=== PATIENT | female | born 2000 | race Caucasian/White ===

== ENCOUNTER 2019-05-21 18:21 | Emergency (ER) | payer OTHER, BC ==
[2019-05-21] MEDS ORDERED: Lidocaine 2% 10 ML Amp INJECT ONE (19:08)
--- NOTE | 2019-05-21 19:08 | EDM.PDOC ---
ED HPI GENERAL MEDICAL PROBLEM - General Stated Complaint: LACERATION TO R POINTING FINGER Time Seen by Provider: 05/21/19 18:35 Source of Information: Reports: Patient History Limitations: Reports: No Limitations - History of Present Illness INITIAL COMMENTS - FREE TEXT/NARRATIVE: laceration to right 2nd digit from cutting cheese at home. est 2 cm long in u shape at nail bed. Onset: Today Onset Time: 18:20 Location: Reports: Lower Extremity, Right ED ROS GENERAL - Review of Systems Review Of Systems: See Below Constitutional: Reports: No Symptoms HEENT: Reports: No Symptoms Respiratory: Reports: No Symptoms Cardiovascular: Reports: No Symptoms Endocrine: Reports: No Symptoms GI/Abdominal: Reports: No Symptoms : Reports: No Symptoms Musculoskeletal: Reports: No Symptoms Skin: Reports: Other (laceration right right 2nd digit 2 cm long at nail bed. ) Neurological: Reports: No Symptoms Psychiatric: Reports: No Symptoms Hematologic/Lymphatic: Reports: No Symptoms Immunologic: Reports: No Symptoms ED EXAM, GENERAL - Physical Exam Exam: See Below Free Text/Narrative:: laceration to right 2nd digit area cleaned with Hibiclens no foreign objects noted in wound. wound explored. digital block performed w/o complications 2% lidocaine w/o epi used 2 cc. 4-0 ethilon 4 sutures placed wound closed, triple antibiotic ointment with bandage. pt to monitor for redness pain or discharge will return to er / clinic at that time. follow up in 10 days for suture removed. Pt tolerated procedure well w/o complications Exam Limited By: No Limitations General Appearance: Alert, WD/WN, No Apparent Distress Eye Exam: Bilateral Eye: Normal Inspection Ears: Normal External Exam Nose: Normal Inspection, Normal Mucosa, No Blood Throat/Mouth: Normal Inspection, Normal Lips Head: Atraumatic, Normocephalic Neck: Normal Inspection Respiratory/Chest: No Respiratory Distress, Lungs Clear, Normal Breath Sounds Cardiovascular: Normal Peripheral Pulses Skin Exam: Wound/Incision, Other (laceration to right 2nd digit est 2 cm long ) Course - Orders/Labs/Meds Meds: Medications Discontinued Medications Generic Name Dose Route Start Last Admin Trade Name Freq PRN Reason Stop Dose Admin Lidocaine HCl 10 ml 05/21/19 19:08 05/21/19 19:11 Xylocaine-Mpf 2% (Sterile-Christiano) INJECT 05/21/19 19:09 10 ml ONETIME ONE Administration Departure - Departure Time of Disposition: 19:52 Disposition: Home, Self-Care 01 Clinical Impression: Laceration - Discharge Information *PRESCRIPTION DRUG MONITORING PROGRAM REVIEWED*: Not Applicable *COPY OF PRESCRIPTION DRUG MONITORING REPORT IN PATIENT PB: Not Applicable Instructions: Wound Care, Adult
== END 2019-05-21 19:55 | disposition home or self-care (01) ==
LOC: VM.ED 18:21
DX: S61.210A Laceration without foreign body of right index finger without damage to nail, initial encounter (principal); W26.8XXA Contact with other sharp object(s), not elsewhere classified, initial encounter
CPT/HCPCS: 12001; 99282; J2001; 12002